=== PATIENT | female | born 1935 | race Caucasian/White ===

== ENCOUNTER 2017-05-08 09:59 | Emergency (ER) | payer MEDICARE ==
[~2017-05-08] VITALS: Ht 154.9 cm; Wt 72.6 kg
[2017-05-08 10:31] LABS: BASO % 0.1 % (0.0-1.0); EOS # 0.1 10*3/uL (0.0-0.4); EOS % 1.2 % (1.0-4.0); HEMATOCRIT 32.4 % (37.0-47.0); HEMOGLOBIN 9.6 g/dl (12.0-16.0); LYMPH # 0.3 10*3/uL (1.3-4.4); LYMPH % 4.1 % (27.0-41.0); MEAN CELL VOLUME 92.3 fl (81.0-99.0); MEAN CORPUSCULAR HGB 27.4 pg (27.0-31.0); MEAN CORPUSCULAR HGB CONC 29.6 g/dl (33.0-37.0); MEAN PLATELET VOLUME 9.7 fl (9.6-12.3); MONO # 0.6 10*3/uL (0.1-1.0); MONO % 8.1 % (3.0-9.0); NEUT # 6.7 10*3/uL (2.3-7.9); NEUT % 85.7 % (47.0-73.0); PLATELET COUNT AUTOMATED 141 10*3/uL (130-400); RED BLOOD COUNT 3.51 10*6/uL (4.10-5.10); RED CELL DISTRI WIDTH 15.7 % (0-14.5); WHITE BLOOD COUNT 7.8 10*3/uL (4.8-10.8)
[2017-05-08 10:31] LABS: ABG BASE EXCESS 4.8 mmol/L (-2.0-2.0); ABG HCO3 31.6 mmol/l (22-26); ABG O2 SATURATION 96.1 % (95-97); ARTERIAL BLOOD GAS PH 7.302 (7.35-7.45); ARTERIAL BLOOD GAS PO2 96.9 mmHg (80-90)
[2017-05-08 10:42] LABS: BILIRUBIN NEGATIVE (NEGATIVE); BLOOD NEGATIVE (NEGATIVE); CLARITY CLEAR (CLEAR); COLOR YELLOW (YELLOW); GLUCOSE NEGATIVE (NEGATIVE); KETONE NEGATIVE (NEGATIVE); LEUKO ESTERASE NEGATIVE (NEGATIVE); NITRITE NEGATIVE (NEGATIVE); PH 5.5 (5.0-9.0); UROBILINOGEN 0.2 E.U./dl (0.2-1.0)
[2017-05-08 10:43] LABS: ACT PARTIAL THROMBO TIME 23.1 SECONDS (20.8-31.5); INTERNATIONAL NORM RATIO 0.9 (2.0-3.5)
[2017-05-08] MEDS ORDERED: TENORMIN50 MG PO (10:47)
[2017-05-08 10:48] LABS: ALBUMIN 3.3 gm/dl (3.1-4.5); ALKALINE PHOSPHATASE 83 U/L (45-117); BUN 15 mg/dl (7-24); CHLORIDE 99 mmol/L (98-107); CREATININE 0.95 mg/dL (0.55-1.02); POTASSIUM 3.9 mmol/L (3.5-5.1); SGOT/AST 28 IU/L (3-35); SGPT/ALT 23 U/L (12-78); SODIUM 139 mmol/L (136-145); TOTAL PROTEIN 7.1 gm/dL (6.4-8.2)
[2017-05-08] MEDS ORDERED: PRAVACHOL20 MG PO (10:48)
[2017-05-08] MEDS ORDERED: ESOMEPRAZOLE MA40 M1 PO (10:48)
[2017-05-08] MEDS ORDERED: TRAZODONE50 MG PO (10:48)
[2017-05-08] MEDS ORDERED: LEXAPRO20 MG PO (10:49)
[2017-05-08 10:50] LABS: TROPONIN I 0.261 ng/ml (<0.045)
[2017-05-08] MEDS ORDERED: LASIX40 MG PO (10:50)
[2017-05-08] MEDS ORDERED: LETAIRIS5 MG PO (10:50)
[2017-05-08] MEDS ORDERED: SOMA350 MG PO (10:51)
[2017-05-08] MEDS ORDERED: K-TAB20 MEQ PO (10:51)
[2017-05-08] MEDS ORDERED: NORCO 5-325 TA1 EACH PO (10:52)
[2017-05-08 10:54] LABS: BACTERIA TRACE; WBC 0-2 wbc/hpf (0-5)
== END 2017-05-08 12:51 | disposition short-term general hospital (02) ==
LOC: ED 09:59
PROVIDERS: Emergency Medicine
DX: A41.9 Sepsis, unspecified organism (principal); J96.02 Acute respiratory failure with hypercapnia; I50.9 Heart failure, unspecified; R79.89 Other specified abnormal findings of blood chemistry; Z79.899 Other long term (current) drug therapy; Z90.49 Acquired absence of other specified parts of digestive tract